=== PATIENT | female | born 1935 | race African-American/Black ===

== ENCOUNTER 2024-08-14 13:58 | Emergency (ER) | payer MEDICARE, MEDICAID ==
[~2024-08-14] VITALS: Ht 165.1 cm; Wt 80.0 kg
[2024-08-14 14:02] VITALS: O2SAT 98
[2024-08-14 14:12] VITALS: BP 108/79; PULSE 154; RESP 16; TEMP 37.05852; O2SAT 98
[2024-08-14] MEDS ORDERED: MIDAZOLAM HCL 2 MG/2 ML VIAL IV ONE (14:15)
[2024-08-14 14:53] LABS: BASOPHILS % 0.8 % (0.0-2.0); EOSINOPHILS % 0.9 % (0.0-5.0); HEMATOCRIT. 34.7 % (36.0-48.0); HEMOGLOBIN. 11.3 g/dL (12.0-16.0); LYMPHOCYTES % 14.8 % (20.0-50.0); MEAN CORPUSCULAR HEMOGLOBIN 31.1 pg (28.0-32.0); MEAN CORPUSCULAR HGB CONC 32.6 g/dL (31.0-37.0); MEAN CORPUSCULAR VOLUME 95.2 fL (81.0-99.0); MEAN PLATELET VOLUME 8.3 fl (7.4-10.4); NEUTROPHILS % 77.5 % (40.0-76.0); PLATELET 287 x1000/uL (130-400); RED BLOOD CELL COUNT 3.65 mill/uL (4.2-5.4); RED CELL DISTRIBUTION WIDTH 15.8 % (11.6-14.6); WHITE BLOOD COUNT 5.8 x1000/uL (4.5-11.0)
[2024-08-14 14:58] LABS: CHLORIDE 112 mEq/L (98-107); POTASSIUM 3.4 mEq/L (3.5-5.1); SODIUM 144 mEq/L (136-145)
[2024-08-14 14:59] LABS: CALCIUM 8.9 mg/dL (8.7-10.4); CARBON DIOXIDE 20 mEq/L (21-32)
[2024-08-14 15:02] LABS: PROTHROMBIN TIME 10.9 sec (9.6-11.0)
[2024-08-14 15:04] LABS: CREATININE 1.4 mg/dL (0.6-1.0); GLUCOSE 272 mg/dL (70-105); UREA NITROGEN BLOOD 25 mg/dL (9-23)
[2024-08-14 15:40] LABS: TROPONIN I HIGH SENSITIVITY 51 ng/L (3.0-34)
[2024-08-14] MEDS ORDERED: MORPHINE SULFATE 4 MG/ML INJ (FOR IV/IM USE) IV STA (16:06)
[2024-08-14] MEDS ORDERED: ONDANSETRON HCL 4MG/2ML INJ IV STA (16:06)
== END 2024-08-14 17:00 | disposition left against medical advice (07) ==
LOC: ER 14:30
DX: R00.0 Tachycardia, unspecified (principal); E11.9 Type 2 diabetes mellitus without complications; I48.91 Unspecified atrial fibrillation; Z88.0 Allergy status to penicillin
CPT/HCPCS: 36415; 71045; 80048; 83880; 84484; 85025; 93005; 99285